=== PATIENT | male | born 1955 | race Two or more races ===

== ENCOUNTER 2020-07-29 18:29 | Inpatient (IN) | payer MEDICARE, OTHER ==
[~2020-07-29] VITALS: Ht 170.2 cm; Wt 62.1 kg
--- NOTE | 2020-07-29 18:30 | NUR ---
BIB FAMILY C/O ABDOMINAL PAIN AND VOMITING X 3 DAYS. TO ER BED 10, HOOKED TO MONITOR, NOTED WITH ELEVATED BP. CHANGED TO HOSP GOWN, WARM BLANKET PROVIDED, PATIENT AAO x 4. BREATHING EVENA ND UNLABORED. BOX MAKER WOOD DEGRASSE AT BEDSIDE
[2020-07-29] MEDS ORDERED: ONDANSETRON HCL/PF 4 MG/2 ML VIAL ONE (18:58)
[2020-07-29] MEDS ORDERED: ONDANSETRON HCL/PF 4 MG/2 ML VIAL IVP ONE (19:00)
[2020-07-29] MEDS ORDERED: IV NS 0.9% 1,000 ML BAG IV ONE (19:00)
--- NOTE | 2020-07-29 19:00 | NUR ---
URINE SAMPLE COLLECTED AND SENT TO LAB
[2020-07-29 19:11] LABS: BASOPHILS % (AUTO) 0.7 % (0.0-2.0); EOSINOPHILS % (AUTO) 2.1 % (0.0-6.0); HEMATOCRIT 37 % (39-51); HEMOGLOBIN 13.1 g/dL (13.5-17.5); LYMPHOCYTES # (AUTO) 1.7 /CMM (0.8-4.8); LYMPHOCYTES % (AUTO) 27.7 % (20.0-44.0); MEAN CORPUSCULAR HGB CONC 35 g/dl (31.0-36.0); MEAN CORPUSCULAR VOLUME 89 fL (80-96); MONOCYTES # (AUTO) 0.7 /CMM (0.1-1.30); MONOCYTES % (AUTO) 10.7 % (2.0-12.0); NEUTROPHILS # (AUTO) 3.7 /CMM (1.8-8.9); NEUTROPHILS % (AUTO) 58.8 % (43.0-81.0); PLATELET COUNT (AUTO) 191 /CMM (150-450); RED BLOOD CELL COUNT(AUTO) 4.21 MIL/uL (4.5-6.0); WHITE BLOOD COUNT (AUTO) 6.2 K/uL (4.3-11.0)
--- NOTE | 2020-07-29 19:16 | NUR ---
MADE PROFESSIONAL SERVICES MANAGER DEGRASSE AWARE OF BP
[2020-07-29 19:18] LABS: CALCIUM, SERUM 9.3 mg/dL (8.5-10.1); CREATININE 1.1 mg/dL (0.6-1.3)
[2020-07-29 19:23] LABS: ALBUMIN 3.7 g/dL (3.4-5.0); BILIRUBIN,DIRECT 0.1 mg/dL (0.0-0.2); BILIRUBIN,TOTAL 0.4 mg/dL (0.2-1.0); TOTAL PROTEIN, SERUM 7.2 g/dL (6.4-8.2)
[2020-07-29 19:26] LABS: BILIRUBIN,URINE NEGATIVE (NEGATIVE); COLOR,URINE YELLOW (YELLOW); LEUKOCYTE ESTERASE ,URINE NEGATIVE (NEGATIVE); NITRITE, URINE NEGATIVE (NEGATIVE); PH,URINE 7.5 (5.0-8.0); PROTEIN,URINE 100 mg/dl (NEGATIVE); UGLUCOSE 500 MG/DL mg/dL (NEGATIVE); UROBILINOGEN,URINE 0.2 EU/dL (0.2)
--- NOTE | 2020-07-29 19:30 | NUR ---
RADIOLOGY AT BEDSIDE TO TAKE PATIENT TO CT.
[2020-07-29] MEDS ORDERED: IV NS 0.9% 250 ML IV ONE (19:35)
[2020-07-29] MEDS ORDERED: IOHEXOL-300 100 ML VIAL IV ONE (19:35)
[2020-07-29 19:40] LABS: BACTERIA,URINE None seen /HPF (None Seen); SQUAMOUS EPITHELIAL CELL,UR 0-2 /HPF (None Seen); WBC,URINE 0-2 /HPF (0-3)
[2020-07-29] MEDS ORDERED: hydrALAZINE HCL IV 20 MG VIAL IV ONE (20:30)
[2020-07-29] MEDS ORDERED: hydrALAZINE HCL IV 20 MG VIAL ONE (20:30)
[2020-07-29] MEDS ORDERED: ASPIRIN 81 MG TAB.CHEW PO ONE (21:00)
[2020-07-29] MEDS ORDERED: ASPIRIN 81 MG TAB.CHEW ONE (21:04)
[2020-07-29] MEDS ORDERED: ONDA4TAB11 PO (22:16)
[2020-07-29] MEDS ORDERED: DOCU-141 PO (22:16)
[2020-07-29] MEDS ORDERED: ONDANSETRON HCL/PF 4 MG/2 ML VIAL IVP PRN (23:00)
[2020-07-29] MEDS ORDERED: ACETAMINOPHEN 325 MG TABLET PO PRN (23:00)
[2020-07-29] MEDS ORDERED: MAGNESIUM HYDROXIDE 30 ML UDC PO PRN (23:00)
[2020-07-29] MEDS ORDERED: Z GUARD REMEDY 2 OZ OINT TP PRN (23:00)
[2020-07-29] MEDS ORDERED: ZOLPIDEM TARTRATE 5 MG TABLET PO PRN (23:00)
[2020-07-29] MEDS ORDERED: MAG HYDROX/AL HYDROX/SIMETH 30 ML UDC PO PRN (23:00)
[2020-07-29] MEDS ORDERED: HYDROCODONE/APAP 5/325MG TABLET PO PRN (23:00)
[2020-07-29] MEDS ORDERED: DEXTROSE 50%-WATER 50 ML DISP.SYRIN IV PRN (23:30)
--- NOTE | 2020-07-30 00:13 | NUR ---
PATIENT AMBULATED TO THE RESTROOM WITH A STEADY GAIT.
--- NOTE | 2020-07-30 03:29 | NUR ---
PATIENT IS SLEEPING. EASILY AROUSABLE THROUGH VERBAL STIMULI. PATIENT IS BREATHING EVENLY AND UNLABORED ON ROOM AIR. CONNECTED TO [employer] NUR[employer] DIRECT[employer] FOR FURTHER MONTIORING. PATIENT'S BED AT THE LOWEST POSITION. CALL LIGHT IS WITHIN REACH. SITTER NEAR BEDSIDE. WILL CONTINUE TO LOOK OUT OF PATIENT.
[2020-07-30 04:48] LABS: BASOPHILS % (AUTO) 0.3 % (0.0-2.0); HEMATOCRIT 35 % (39-51); HEMOGLOBIN 12.4 g/dL (13.5-17.5); LYMPHOCYTES % (AUTO) 35.5 % (20.0-44.0); MEAN CORPUSCULAR HGB CONC 35 g/dl (31.0-36.0); MEAN CORPUSCULAR VOLUME 89 fL (80-96); MONOCYTES # (AUTO) 0.6 /CMM (0.1-1.30); MONOCYTES % (AUTO) 10.7 % (2.0-12.0); NEUTROPHILS # (AUTO) 2.8 /CMM (1.8-8.9); NEUTROPHILS % (AUTO) 50.5 % (43.0-81.0); PLATELET COUNT (AUTO) 180 /CMM (150-450); RED BLOOD CELL COUNT(AUTO) 3.94 MIL/uL (4.5-6.0); WHITE BLOOD COUNT (AUTO) 5.5 K/uL (4.3-11.0)
[2020-07-30 05:10] LABS: ALBUMIN 3.3 g/dL (3.4-5.0); BILIRUBIN,TOTAL 0.5 mg/dL (0.2-1.0); CALCIUM, SERUM 8.7 mg/dL (8.5-10.1); MAGNESIUM 1.9 mg/dL (1.8-2.4); PHOSPHORUS 3.6 mg/dL (2.5-4.9); POTASSIUM 3.9 mmol/L (3.5-5.1); TOTAL PROTEIN, SERUM 6.4 g/dL (6.4-8.2)
--- NOTE | 2020-07-30 05:51 | NUR ---
PATIENT AMBULATED TO THE RESTROOM WITH A STEADY GAIT.
--- NOTE | 2020-07-30 07:50 | NUR ---
REPORT GIVEN TO KAYLAN GARCIA FOR MADDY.
[2020-07-30] MEDS ORDERED: LISI20TA30 PO (08:09)
[2020-07-30] MEDS ORDERED: METF-440 PO (08:09)
--- NOTE | 2020-07-30 08:12 | NUR ---
pt transferred to [facility] via [facility] with rn and emt.
[2020-07-30] MEDS: INSULIN REGULAR, HUMAN 100 UNIT/ML 3 ML VIAL SQ PRN ×4 (08:53→22:57)
[2020-07-30] MEDS: ASPIRIN 81 MG TAB.CHEW PO SCH (08:54)
[2020-07-30] MEDS: BLOOD SUGAR DIAGNOSTIC 1 EACH STRIP IN SCH ×4 (08:54→23:24)
[2020-07-30] MEDS: DOCUSATE SODIUM 100 MG CAPSULE PO SCH ×2 (08:54→16:31)
[2020-07-30] MEDS: PANTOPRAZOLE 40 MG TABLET.DR PO SCH (08:54)
--- NOTE | 2020-07-30 08:58 | NUR ---
TELE ADMITTING NOTES RN NOTES PT ADMITTED TO UNIT AT 0825 VIA [facility] PT ABLE TO AMBULATE FROM GURNEY TO BED WITH STEADY GAIT. PT IS A/O X4. ABLE TO MAKE NEEDS KNOWN, DENIES PAIN OR ANY DISCOMFORTS AT THIS TIME. STATED "I FEEL MUCH BETTER". PT ORIENTED TO STAFF AND ROOM. PT ON ROOM AIR, BREATHING EVEN AND UNLABORED. NOTED WITH HIGH BP 187/104, DR SMYTH ON UNIT AND ORDERED TO GIVE HYDRALAZINE 25MG PO Q 6HRS PRN FOR SBP >160. HYDRALAZINE GIVEN AND PT TOLERATED. PT NOTED WITH IV ACCESS ON LFA G#18 PATENT AND FLUSHES WELL. PT PLACED ON EXTERNAL EXTRUSION ENGINEER WITH CURRENT READING OF NSR WITH HR ON THE 90'S, NO C/O CARDIAC DISTRESS VOICED. SAFETY MEASURES INITIATED: BED PLACED IN LOWEST LOCKED POSITION WITH SR UP X2. CALL LIGHT AND BEDSIDE TABLE PLACED W/IN EASY REACH OF PT. WILL CONTINUE TO MONITOR PT ACCORDINGLY.
[2020-07-30 09:00] VITALS: BP 187/100
[2020-07-30] MEDS ORDERED: hydrALAZINE HCL 25 MG TABLET PO PRN (09:00)
[2020-07-30] MEDS: ONDANSETRON 4 MG TAB.RAPDIS PO SCH (09:30)
[2020-07-30] MEDS: LISINOPRIL (20MG) 20 MG TABLET PO SCH (10:00)
--- NOTE | 2020-07-30 11:35 | NUR ---
RN NOTES PT SEEN AND EVALUATED BY DR. BAKER. ORDERED STAT ECHO AND D/C TELEMETRY. WILL CONTINUE TO MONITOR.
[2020-07-30 16:00] VITALS: BP 147/78
--- NOTE | 2020-07-30 18:41 | NUR ---
MS RN CLOSING NOTES PT IN BED AWAKE AND WATCHING TV AT THIS TIME. A/O X4. ABLE TO MAKE NEEDS KNOWN. SPEAKS GERMAN. BUT CAN UNDERSTAND [place]. AMBULATORY WITH STEADY GAIT. ON ROOM AIR, TOLERATING WELL, BREATHING EVEN AND UNLABORED. IV SL ON LFA G#18 INTACT, PATENT AND FLUSHES WELL. ALL NEEDS AND CARE ATTENDED WELL. SAFETY MEASURES MAINTAINED: BED KEPT IN LOWEST LOCKED POSITION WITH SR UP X2. CALL LIGHT AND BEDSIDE TABLE W/IN EASY REACH OF PT. WILL ENDORSE MADDY TO NIGHT NURSE.
--- NOTE | 2020-07-30 19:35 | NUR ---
RN NOTES PT IN BED AWAKE AND WATCHING TV AT THIS TIME. A/O X4. ABLE TO MAKE NEEDS KNOWN. SPEAKS BOLIVIAN. BUT CAN UNDERSTAND HEBREW. AMBULATORY WITH STEADY GAIT. ON ROOM AIR, TOLERATING WELL, BREATHING EVEN AND UNLABORED. IV SL ON LFA G#18 INTACT, PATENT AND FLUSHES WELL. ALL NEEDS AND CARE ATTENDED WELL. SAFETY MEASURES MAINTAINED: BED KEPT IN LOWEST LOCKED POSITION WITH SR UP X2. CALL LIGHT AND BEDSIDE TABLE W/IN EASY REACH OF PT. WILL CONTINUE TO MONITOR.
[2020-07-30 20:00] VITALS: BP 158/90
[2020-07-31 06:38] LABS: BASOPHILS % (AUTO) 0.3 % (0.0-2.0); EOSINOPHILS % (AUTO) 3.6 % (0.0-6.0); HEMATOCRIT 39 % (39-51); HEMOGLOBIN 13.6 g/dL (13.5-17.5); LYMPHOCYTES % (AUTO) 43.7 % (20.0-44.0); MEAN CORPUSCULAR HGB CONC 35 g/dl (31.0-36.0); MEAN CORPUSCULAR VOLUME 89 fL (80-96); MONOCYTES # (AUTO) 0.6 /CMM (0.1-1.30); MONOCYTES % (AUTO) 9.2 % (2.0-12.0); NEUTROPHILS % (AUTO) 43.2 % (43.0-81.0); PLATELET COUNT (AUTO) 201 /CMM (150-450); RED BLOOD CELL COUNT(AUTO) 4.37 MIL/uL (4.5-6.0); WHITE BLOOD COUNT (AUTO) 6.9 K/uL (4.3-11.0)
[2020-07-31 06:53] LABS: CALCIUM, SERUM 9.2 mg/dL (8.5-10.1); MAGNESIUM 2.2 mg/dL (1.8-2.4); PHOSPHORUS 5.3 mg/dL (2.5-4.9); POTASSIUM 4.1 mmol/L (3.5-5.1)
[2020-07-31] MEDS: INSULIN REGULAR, HUMAN 100 UNIT/ML 3 ML VIAL SQ PRN (06:53)
[2020-07-31] MEDS: BLOOD SUGAR DIAGNOSTIC 1 EACH STRIP IN SCH (07:08)
[2020-07-31 08:00] VITALS: BP 166/96
--- NOTE | 2020-07-31 08:00 | NUR ---
RN OPENING NOTE PT IS A/O X3, [place] SPEAKING. PT IS ABLE TO UNDERSTAND SENEGALESE AND VERBALIZE NEEDS TO NURSE. CURRENTLY ON RA WITH NO SOB OR RESPIRATORY DISTRESS PRESENT. PT IS AMBULATORY WITHOUT ASSIST. SKIN IS INTACT. IV PRESENT IN THE LEFT FOREARM. [address] G. SAFET[address] MEASURES IN PLACE. SIDE RAILS RAISED. BED LOWERED. CALL LIGHT WITHIN REACH. WILL CONTINUE TO MONITOR.
[2020-07-31] MEDS: PANTOPRAZOLE 40 MG TABLET.DR PO SCH (08:08)
[2020-07-31] MEDS: DOCUSATE SODIUM 100 MG CAPSULE PO SCH (08:08)
[2020-07-31] MEDS: LISINOPRIL (20MG) 20 MG TABLET PO SCH (08:09)
[2020-07-31] MEDS: ASPIRIN 81 MG TAB.CHEW PO SCH (08:09)
[2020-07-31] MEDS: ONDANSETRON 4 MG TAB.RAPDIS PO SCH (08:18)
[2020-07-31] MEDS ORDERED: glipiZIDE 5 MG TABLET PO SCH (09:00)
[2020-07-31] MEDS ORDERED: METFORMIN 500 MG TABLET PO SCH (09:00)
[2020-07-31] MEDS ORDERED: LISINOPRIL (20MG) 20 MG TABLET PO SCH (09:00)
[2020-07-31] MEDS ORDERED: ATOR20TA PO (09:07)
[2020-07-31] MEDS ORDERED: ASPI-1169 PO (09:07)
[2020-07-31] MEDS ORDERED: LISI20TA30 PO (09:08)
[2020-07-31] MEDS ORDERED: METF-440 PO (09:08)
[2020-07-31] MEDS ORDERED: GLIP5TAB13 PO (09:08)
[2020-07-31 09:13] VITALS: BP 166/96
--- NOTE | 2020-07-31 09:13 | NUR ---
RN LISINOPRIL ADMINISTRATION NOTE GAVE PT 1 TABLET OF 20 MG LISINOPRIL AT 0800, ONLY GAVE 1 TABLET 20 MG LISINOPRIL AT 0900. TOTAL DOSAGE OF 50 MG. WILL MONITOR.
--- NOTE | 2020-07-31 10:00 | NUR ---
MACHINIST INSTRUCTOR NOTE PT DISCHARGED HOME IN STABLE CONDITION VIA PRIVATE CAR. WAS BROUGHT HOME BY SON. PT EXITCARE GIVEN AND EDUCATION PROVIDED. PT BELONGINGS CHECKED AND GIVEN. HL AND ID BAND REMOVED.
--- NOTE | 2020-07-31 11:03 | NUR ---
RN OPENING NOTE PT IS A/O X3, CITIZEN OF [place] SPEAKING. PT IS ABLE TO UNDERSTAND [place] AND VERBALIZE NEEDS TO NURSE. CURRENTLY ON RA WITH NO SOB OR RESPIRATORY DISTRESS PRESENT. PT IS AMBULATORY WITHOUT ASSIST. SKIN IS INTACT. IV PRESENT IN THE LEFT FOREARM. 18 G. SAFETY MEASURES IN PLACE. SIDE RAILS RAISED. BED LOWERED. CALL LIGHT WITHIN REACH. WILL CONTINUE TO MONITOR. Addendum: 07/31/20 at 1107 by NGA ESPAÑA RN TIME OF ASSESSMENT: 0800
== END 2020-07-31 10:30 | disposition home or self-care (01) | DRG 305 ==
LOC: ER 18:34 → TRANSITION 22:52 → TELE 07-30 04:20 → MED 07-30 11:36
PROVIDERS: ADMIT Nurse Practitioner Acute Care; ATTEND Internal Medicine
DX: I16.0 Hypertensive urgency (principal); I10 Essential (primary) hypertension; I25.10 Atherosclerotic heart disease of native coronary artery without angina pectoris; E11.9 Type 2 diabetes mellitus without complications; E78.5 Hyperlipidemia, unspecified; K59.00 Constipation, unspecified; Z79.84 Long term (current) use of oral hypoglycemic drugs; Z95.5 Presence of coronary angioplasty implant and graft; Z20.822 Contact with and (suspected) exposure to COVID-19
CPT/HCPCS: 36415; 70450-TC; 71045-TC; 80048-TC; 80053-TC; 80061-TC; 80076-TC; 81001; 82962-TC; 83690-TC; 83735-TC; 84100-TC; 84484-TC; 85025-TC; 85730-TC; 87081-TC; 93307-TC; G0378; J0360; J2405; J7030; J7050; Q0162; Q9967

== ENCOUNTER 2021-09-07 05:16 | Emergency (ER) | payer OTHER ==
[~2021-09-07] VITALS: Ht 170.2 cm; Wt 67.6 kg
[~2021-09-07 05:16] MED LIST: ASPI-1169 PO; ATOR20TA PO; GLIP5TAB13 PO; LISI20TA30 PO; METF-440 PO
--- NOTE | 2021-09-07 05:46 | NUR ---
TO ER BED 3. BIBSELF C/O DIZZY AND SOB AT 3AM. PT DENIES SYNCOPAL EPISODE. PT NOT CURRENTLY DIZZY OR SOB. PT CONNECTED TO MONITOR. NOT IN RESPIRATORY DISTRESS, 98 O2 SAT NOTED. AWAITING MD CORDOVA
--- NOTE | 2021-09-07 06:26 | NUR ---
IV LINE ESTABLISHED , LAC 20G. BLOOD COLLECTED AND SENT TO LAB
[2021-09-07] MEDS ORDERED: IV NS 0.9% 1,000 ML BAG IV ONE (06:30)
--- NOTE | 2021-09-07 06:45 | NUR ---
COVID ANTIGEN SWAB COLLECTED AND SENT TO LAB
--- NOTE | 2021-09-07 07:15 | NUR ---
Pt reclining in Bed appears to be in NO obvious distress at this time. Appropriate and Responsive GCS-15 denies any dizziness or any complaints of at this time- updated with plan of care. Awaiting admission
[2021-09-07 07:47] LABS: CALCIUM, SERUM 8.1 mg/dL (8.5-10.1); CARBON DIOXIDE 29 mmol/L (21-32); CHLORIDE 102 mmol/L (98-107); CREATININE 1.5 mg/dL (0.6-1.3); GLUCOSE 308 mg/dL (74-106); POTASSIUM 4.5 mmol/L (3.5-5.1); SODIUM SERUM 135 mmol/L (136-145); UREA NITROGEN, BLOOD 27 mg/dL (7-18)
[2021-09-07 07:50] LABS: BASOPHILS % (AUTO) 0.1 % (0.0-2.0); EOSINOPHILS % (AUTO) 0.6 % (0.0-6.0); HEMATOCRIT 36 % (39-51); HEMOGLOBIN 12.4 g/dL (13.5-17.5); LYMPHOCYTES # (AUTO) 0.8 K/uL (0.8-4.8); LYMPHOCYTES % (AUTO) 8.2 % (20.0-44.0); MEAN CORPUSCULAR HGB CONC 34 g/dl (31.0-36.0); MEAN CORPUSCULAR VOLUME 91 fL (80-96); MONOCYTES # (AUTO) 0.7 K/uL (0.1-1.30); MONOCYTES % (AUTO) 7.3 % (2.0-12.0); NEUTROPHILS % (AUTO) 83.8 % (43.0-81.0); PLATELET COUNT (AUTO) 183 K/uL (150-450); WHITE BLOOD COUNT (AUTO) 9.5 K/uL (4.3-11.0)
--- NOTE | 2021-09-07 07:51 | NUR ---
continuous pillowcase cutter kelsey. contact # [phone]/ fax [phone]
[2021-09-07 07:54] LABS: ALANINE AMINOTRANSFERASE 81 U/L (12-78); ALBUMIN 3.4 g/dL (3.4-5.0); ALKALINE PHOSPHATASE 99 U/L (46-116); ASPARTATE AMINOTRANSFERASE 202 U/L (15-37); BILIRUBIN,DIRECT 0.1 mg/dL (0.0-0.2); BILIRUBIN,TOTAL 0.4 mg/dL (0.2-1.0); TOTAL PROTEIN, SERUM 6.8 g/dL (6.4-8.2)
--- NOTE | 2021-09-07 08:01 | NUR ---
BLOOD RESULTED AT 0801H.
--- NOTE | 2021-09-07 08:08 | NUR ---
CODE STEMI ACTIVATED
--- NOTE | 2021-09-07 08:10 | NUR ---
RESCUE AMBULANCE 88 AT BEDSIDE FOR STEMI TRANSFER.
[2021-09-07] MEDS ORDERED: ASPIRIN 325 MG TABLET ONE (08:14)
[2021-09-07] MEDS ORDERED: NITROGLYCERIN 0.4 MG/TAB BOTTLE ONE (08:14)
--- NOTE | 2021-09-07 08:15 | NUR ---
04MG NTG SL GIVEN ORDRED BY
--- NOTE | 2021-09-07 08:20 | NUR ---
04MG NTG SL GIVEN ORDRED BY .
[2021-09-07] MEDS ORDERED: HEPARIN SODIUM, PORCINE 5000 UNITS/1 ML VIAL ONE (08:23)
[2021-09-07] MEDS ORDERED: ONDANSETRON HCL/PF 4 MG/2 ML VIAL ONE (08:26)
[2021-09-07 08:30] VITALS: BP 188/99
[2021-09-07] MEDS ORDERED: ASPIRIN 81 MG TAB.CHEW PO ONE (08:30)
[2021-09-07] MEDS ORDERED: ONDANSETRON HCL/PF 4 MG/2 ML VIAL IV ONE (08:30)
--- NOTE | 2021-09-07 08:30 | NUR ---
REPORT GIVEN TO [employer] FOR STEMI TRANSFER TO [facility].
[2021-09-07] MEDS ORDERED: FUROSEMIDE 40 MG/4 ML VIAL ONE (08:31)
[2021-09-07] MEDS ORDERED: NITROGLYCERIN 0.4 MG/TAB BOTTLE SL ONE (09:00)
[2021-09-07] MEDS ORDERED: FUROSEMIDE 40 MG/4 ML VIAL IV ONE (09:00)
[2021-09-07 10:04] LABS: MAGNESIUM 2.6 mg/dL (1.8-2.4)
== END 2021-09-07 09:05 | disposition short-term general hospital (02) ==
LOC: ER 05:41
DX: I21.9 Acute myocardial infarction, unspecified (principal); I11.0 Hypertensive heart disease with heart failure; I50.9 Heart failure, unspecified; Z20.822 Contact with and (suspected) exposure to COVID-19; Z95.5 Presence of coronary angioplasty implant and graft; Z79.899 Other long term (current) drug therapy; Z79.84 Long term (current) use of oral hypoglycemic drugs; R11.2 Nausea with vomiting, unspecified; Z86.16 Personal history of COVID-19; E11.9 Type 2 diabetes mellitus without complications
CPT/HCPCS: 36415; 70450; 71045; 80048; 80076; 83735; 83880; 84484; 85025; 85730; 87426; 93005 ×2; 96361; 96374; 96375; 99291; C9803; J1644; J1940; J2405